=== PATIENT | male | born 1970 | race Caucasian/White ===

== ENCOUNTER 2019-08-03 12:12 | Emergency (ER) | payer OTHER ==
[~2019-08-03] VITALS: Ht 182.9 cm; Wt 86.2 kg
[~2019-08-03 12:12] MED LIST: FLOMAX0.4 MG PO; PERCOCET 5-3251 EACH PO; ZANTAC150 MG PO; ZOFRAN8 MG PO
[2019-08-03] MEDS ORDERED: ONDANSETRON ODT8 MG PO (14:16)
== END 2019-08-03 14:35 | disposition home or self-care (01) ==
LOC: ED 12:12
DX: K52.9 Noninfective gastroenteritis and colitis, unspecified (principal); Z79.899 Other long term (current) drug therapy
CPT/HCPCS: 96361; 96374; 96375; 99283-25; J1630; J2405; J2765; J7120